=== PATIENT | female | born 1990 | race Hispanic/Latino ===

== ENCOUNTER 2018-12-07 03:35 | Observation (INO) | payer MEDICAID ==
[~2018-12-07] VITALS: Ht 162.6 cm; Wt 103.0 kg
[~2018-12-07 03:35] MED LIST: DOCU-116 PO; IBUP-2077 PO; PREN-64 PO
[2018-12-07] MEDS ORDERED: MORPHINE SULFATE 4 MG/1ML SYG ONE (03:56)
[2018-12-07] MEDS ORDERED: ONDANSETRON HCL 4 MG/2 ML VIAL ONE (03:56)
[2018-12-07] MEDS ORDERED: LIDOCAINE HCL 2% VISCOUS 15 ML UDCUP ONE (03:56)
[2018-12-07] MEDS ORDERED: MAG HYDROX/AL HYDROX/SIMETH ES 30 ML SUSP UDCUP ONE (03:56)
[2018-12-07 03:57] LABS: BASOPHILS % (AUTO) 0.5 % (0.0-5.0); EOSINOPHILS % (AUTO) 4.1 % (0.0-8.0); HEMATOCRIT 36.8 % (36-48); LYMPHOCYTES % (AUTO) 25.3 % (21.0-51.0); MEAN CORPUSCULAR HEMOGLOBIN 29.3 pg (27.0-33.0); MEAN CORPUSCULAR HGB CONC 33.6 g/dL (32.0-36.0); MEAN CORPUSCULAR VOLUME 87.2 fL (79-99); MONOCYTES % (AUTO) 9.3 % (3.0-13.0); NEUTROPHILS % (AUTO) 60.8 % (40.0-77.0); PLATELET COUNT (AUTO) 311 K/uL (130-400); RED BLOOD CELL COUNT(AUTO) 4.22 MIL/uL (4.00-5.50); WHITE BLOOD COUNT (AUTO) 8.7 K/uL (4.8-10.8)
[2018-12-07 03:58] LABS: APPEARANCE,URINE Clear (CLEAR); BILIRUBIN,URINE Negative (NEGATIVE); COLOR,URINE Yellow (YELLOW); GLUCOSE, URINE (UA) Negative (NEGATIVE); KETONES,URINE Trace mg/dL (NEGATIVE); LEUKOCYTE ESTERASE ,URINE Negative (NEGATIVE); NITRATE,URINE Negative (NEGATIVE); OCCULT BLOOD,URINE Negative (NEGATIVE); PROTEIN,URINE Negative (NEGATIVE)
[2018-12-07 04:00] LABS: HCG,QUAL RESULT POSITIVE (NEGATIVE)
[2018-12-07 04:09] LABS: CREATININE 0.7 mg/dL (0.5-1.5); POTASSIUM 3.3 mmol/L (3.5-5.1)
[2018-12-07 04:13] LABS: ALBUMIN 3.6 g/dL (3.5-5.0); BILIRUBIN,TOTAL 0.2 mg/dL (0.2-1.0); TOTAL PROTEIN, SERUM 7.4 g/dL (6.0-8.3)
[2018-12-07] MEDS ORDERED: ZOSYN 3.375GM+NS 50ML 50 ML IV ONE (04:40)
[2018-12-07] MEDS ORDERED: SODIUM CHLORIDE 0.9% 1000ML 1,000 ML IV ONE (05:00)
[2018-12-07] MEDS ORDERED: ONDANSETRON HCL 4 MG/2 ML VIAL IVP PRN (05:45)
[2018-12-07] MEDS ORDERED: MEPERIDINE-PF 50 MG/ML SYG IM PRN (05:45)
[2018-12-07] MEDS ORDERED: PROMETHAZINE HCL 25 MG/ML 1ML AMPULE IM PRN (05:45)
[2018-12-07 06:25] VITALS: BP 125/74
[2018-12-07 07:39] VITALS: BP 125/74
[2018-12-07] MEDS: DEXTROSE 5%-LACTATED RINGERS 1,000 ML IV SCH ×3 (07:55→23:10)
[2018-12-07] MEDS: PANTOPRAZOLE 40 MG/VIAL IVP SCH (09:51)
[2018-12-07 11:50] VITALS: BP 102/60
[2018-12-07] MEDS: ZOSYN 3.375GM+NS 50ML 50 ML IV SCH ×2 (15:53→23:46)
[2018-12-07 16:19] VITALS: BP 108/53
[2018-12-07 19:15] VITALS: BP 116/62
--- NOTE | 2018-12-07 20:01 | NUR ---
Doctor Garrett Brandt at bedside; Doctor Garrett talk to patient, examined her and give orders; Clear liquid diet advance diet as tolerated; Possibly can go home tomorrow. CBC and CMP in AM. May have Zoframn 4 mg Q 6 hours PRN for nausea. Orders noted.
[2018-12-07 23:14] VITALS: BP 104/58
[2018-12-08 03:15] VITALS: BP 113/62
[2018-12-08 04:03] LABS: HEMATOCRIT 33.8 % (36-48); MEAN CORPUSCULAR HEMOGLOBIN 29.4 pg (27.0-33.0); NUCLEATED RED BLOOD CELLS 0.1 % (0.0-0.19); PLATELET COUNT (AUTO) 267 K/uL (130-400); RED BLOOD CELL COUNT(AUTO) 3.79 MIL/uL (4.00-5.50); RED CELL DISTRIBUTION WIDTH 14.2 % (11.0-15.5); WHITE BLOOD COUNT (AUTO) 7.2 K/uL (4.8-10.8)
[2018-12-08 04:19] LABS: BILIRUBIN,TOTAL 0.4 mg/dL (0.2-1.0); CREATININE 0.7 mg/dL (0.5-1.5); POTASSIUM 3.6 mmol/L (3.5-5.1); TOTAL PROTEIN, SERUM 6.2 g/dL (6.0-8.3)
[2018-12-08] MEDS: DEXTROSE 5%-LACTATED RINGERS 1,000 ML IV SCH ×2 (06:08→13:58)
[2018-12-08] MEDS ORDERED: LEVO50TA11 PO (06:17)
[2018-12-08 07:21] VITALS: BP 111/65
[2018-12-08] MEDS: ZOSYN 3.375GM+NS 50ML 50 ML IV SCH (08:40)
[2018-12-08] MEDS: PANTOPRAZOLE 40 MG/VIAL IVP SCH (08:40)
--- NOTE | 2018-12-08 08:50 | NUR ---
DIET PT TOLERATED CLEAR LIQUID DIET, FINISHED EVERYTHING ON TRAY, WILL ADVANCE DIET PER ORDER AND CONTINUE TO MONITOR PATIENT
[2018-12-08 11:22] VITALS: BP 108/66
--- NOTE | 2018-12-08 13:55 | NUR ---
DIET PT TOLERATED LUNCH MEAL, HAS NO EPIGASTRIC PAIN AT THIS TIME, WILL CONTINUE TO MONITOR FOR POSSIBLE D/C HOME
--- NOTE | 2018-12-08 14:30 | NUR ---
ROUNDS DR JANG ROUNDED; INFORMED PT TOLERATED CLEARS FOR BREAKFAST AND LOW FAT FOR LUNCH; NEW ORDERS RECEIVED: D/C HOME, F/U WITH OB
[2018-12-08 16:15] VITALS: BP 105/65
--- NOTE | 2018-12-08 16:35 | NUR ---
DISCHARGE PT STABLE, NO PAIN, NO COMPLAINTS; PT LEFT UNIT, VIA WHEELCHAIR, STILL , ACCOMPANIED BY JULIO, YISEL AND SPOUSE CARRYING ALL PERSONAL BELONGINGS AND INSTRUCTIONS; PT LEFT FACILITY IN PERSONAL VEHICLE
== END 2018-12-08 16:35 | disposition home or self-care (01) ==
LOC: EDH 03:35 → EDHIP 03:37 → UNDOADMOB 04:53 → WSH 06:16
PROVIDERS: ADMIT Specialist; ATTEND Specialist
DX: O99.611 Diseases of the digestive system complicating pregnancy, first trimester (principal); K80.20 Calculus of gallbladder without cholecystitis without obstruction; O00.01 Abdominal pregnancy with intrauterine pregnancy; O99.281 Endocrine, nutritional and metabolic diseases complicating pregnancy, first trimester; E03.9 Hypothyroidism, unspecified; Z3A.01 Less than 8 weeks gestation of pregnancy; Z82.0 Family history of epilepsy and other diseases of the nervous system; Z82.49 Family history of ischemic heart disease and other diseases of the circulatory system; Z83.3 Family history of diabetes mellitus
CPT/HCPCS: 36415 ×2; 76705; 80053 ×2; 81003; 81025; 83690; 85025; 85027; 96365; 96366 ×2; 96372; 96375; 96376; 99284; C9113 ×2; G0378 ×37; J2175; J2270; J2405; J2543 ×4; J2550; J7030; 96361

== ENCOUNTER 2023-11-16 22:31 | Emergency (ER) | payer MEDICAID, OTHER ==
[~2023-11-16] VITALS: Ht 162.6 cm; Wt 99.8 kg
[~2023-11-16 22:31] MED LIST changes: -DOCU-116 PO; -IBUP-2077 PO; +LEVO50TA11 PO; +PREN-196 PO; -PREN-64 PO
[2023-11-16 22:52] LABS: BASOPHILS # (AUTO) 0.04 K/uL (0.00-0.20); BASOPHILS % (AUTO) 0.4 % (0.0-5.0); EOSINOPHILS # (AUTO) 0.14 K/uL (0.00-0.70); EOSINOPHILS % (AUTO) 1.5 % (0.0-8.0); HEMATOCRIT 35.1 % (36-48); IMMATURE GRANULOCYTE ABSOLUTE 0.05 K/uL (0-1); LYMPHOCYTES # (AUTO) 2.4 K/uL (1.0-4.8); LYMPHOCYTES % (AUTO) 25.6 % (21.0-51.0); MEAN CORPUSCULAR HEMOGLOBIN 29.4 pg (27.0-33.0); MEAN CORPUSCULAR HGB CONC 33.3 g/dL (32.0-36.0); MEAN CORPUSCULAR VOLUME 88.2 fL (79-99); MONOCYTES # (AUTO) 0.8 K/uL (0.1-1.0); MONOCYTES % (AUTO) 8.6 % (3.0-13.0); NEUTROPHILS % (AUTO) 63.4 % (40.0-77.0); PLATELET COUNT (AUTO) 335 K/uL (130-400); RED BLOOD CELL COUNT(AUTO) 3.98 MIL/uL (4.00-5.50); RED CELL DISTRIBUTION WIDTH 14.7 % (11.0-15.5); WHITE BLOOD COUNT (AUTO) 9.5 K/uL (4.8-10.8)
[2023-11-16 23:03] LABS: CREATININE 0.7 mg/dL (0.5-1.0); POTASSIUM 3.4 mmol/L (3.5-5.1)
[2023-11-17] MEDS: 0.9%NACL 1000ML 1,000 ML IV ONE (00:02)
[2023-11-17 00:41] VITALS: BP 104/64; PULSE 80; RESP 14; O2SAT 99
== END 2023-11-17 00:47 | disposition home or self-care (01) ==
LOC: EDH 22:31
DX: O03.9 Complete or unspecified spontaneous abortion without complication (principal); Z79.899 Other long term (current) drug therapy; Z98.890 Other specified postprocedural states; Z3A.01 Less than 8 weeks gestation of pregnancy
CPT/HCPCS: 99284; 76801; 80048; 85025; 86850; 86900; 86901; 36415; J7030